=== PATIENT | female | born 1950 | race Caucasian/White ===

== ENCOUNTER → 2018-04-07 | Outpatient (CLI) | payer MEDICARE, OTHER | LOC: MC.RAD 12:47 | DX: Z12.31 Encounter for screening mammogram for malignant neoplasm of breast (principal) ==

== ENCOUNTER 2021-06-23 08:11 | Emergency (ER) | payer MEDICARE, OTHER ==
[~2021-06-23] VITALS: Ht 160 cm; Wt 100.0 kg
[2021-06-23 08:19] VITALS: TEMP 98.1
[2021-06-23 08:50] LABS: BASO % 0.6 % (0.0-2.0); EOS # 0.1 K/mm3 (0.0-0.7); EOS % 1.9 % (0.0-4.0); GRAN # 3.6 K/mm3 (1.4-6.5); GRAN % 66.5 % (42.2-75.2); HEMATOCRIT 47.4 % (37.0-47.0); HEMOGLOBIN 16.1 g/dl (12.5-16.0); LYMPH # 1.2 K/mm3 (1.2-3.4); LYMPH % 21.3 % (20.0-51.0); MEAN CELL VOLUME 88 fl (80.0-100.0); MEAN CORPUSCULAR HEMOGLOBIN 30 pg (27-31); MEAN CORPUSCULAR HGB CONC 34 g/dl (33.0-37.0); MEAN PLATELET VOLUME 8.1 fl (7.4-10.4); MONO # 0.5 K/mm3 (0.1-0.6); MONO % 9.3 % (1.7-9.3); PLATELET COUNT 305 K/mm3 (130-400); REDCELL DISTRIBUTION WIDTH-CV 13.1 % (11.5-14.5)
[2021-06-23 09:03] LABS: ALANINE AMINOTRANSFERASE 29 U/L (0-55); ALBUMIN 4.1 gm/dL (3.4-4.8); ALKALINE PHOSPHATASE 61 U/L (40-150); ANION GAP 13 mmol/L (7-16); AST,SGOT 30 U/L (5-34); BILIRUBIN,TOTAL 0.7 mg/dL (0.2-1.2); BLOOD UREA NITROGEN 10 mg/dL (10-20); CALCIUM 9.1 mg/dL (8.4-10.2); CARBON DIOXIDE 22 mmol/L (23-31); CHLORIDE 103 mmol/L (98-107); CREATININE, serum 0.82 mg/dL (0.57-1.11); GLUCOSE 143 mg/dL (70-99); SODIUM 138 mmol/L (136-145); TOTAL PROTEIN 7.3 gm/dL (6.2-8.1)
[2021-06-23 09:23] LABS: TROPONIN-I < 0.010 ng/mL (0.00-0.033); TSH w REFLEX 1.466 uIU/mL (0.350-4.940)
[2021-06-23 10:45] VITALS: BP 127/79; PULSE 73
== END 2021-06-23 10:45 | disposition home or self-care (01) ==
LOC: COL.ER 08:11
PROVIDERS: Emergency Medicine
DX: R00.2 Palpitations (principal); E66.9 Obesity, unspecified; Z68.39 Body mass index [BMI] 39.0-39.9, adult

== ENCOUNTER 2021-07-22 15:06 | Emergency (ER) | payer MEDICARE, OTHER ==
[~2021-07-22] VITALS: Ht 160 cm; Wt 95.0 kg
[2021-07-22 15:28] VITALS: TEMP 98.1
[2021-07-22 16:33] LABS: BASO % 0.6 % (0.0-2.0); EOS % 0.6 % (0.0-4.0); GRAN # 3.4 K/mm3 (1.4-6.5); GRAN % 72.7 % (42.2-75.2); HEMATOCRIT 46.7 % (37.0-47.0); HEMOGLOBIN 15.7 g/dl (12.5-16.0); LYMPH # 0.8 K/mm3 (1.2-3.4); LYMPH % 16.4 % (20.0-51.0); MEAN CELL VOLUME 89 fl (80.0-100.0); MEAN CORPUSCULAR HEMOGLOBIN 30 pg (27-31); MEAN CORPUSCULAR HGB CONC 34 g/dl (33.0-37.0); MEAN PLATELET VOLUME 8.1 fl (7.4-10.4); MONO # 0.4 K/mm3 (0.1-0.6); MONO % 9.3 % (1.7-9.3); PLATELET COUNT 284 K/mm3 (130-400); RED BLOOD COUNT 5.25 M/mm3 (4.10-5.30); REDCELL DISTRIBUTION WIDTH-CV 13.2 % (11.5-14.5)
[2021-07-22 16:43] LABS: ALBUMIN 3.9 gm/dL (3.4-4.8); BILIRUBIN,TOTAL 0.5 mg/dL (0.2-1.2); CALCIUM 9.2 mg/dL (8.4-10.2); CREATININE, serum 0.84 mg/dL (0.57-1.11); POTASSIUM 4.1 mmol/L (3.5-4.5)
[2021-07-22 16:45] LABS: TROPONIN-I 0.011 ng/mL (0.00-0.033)
[2021-07-22 17:03] VITALS: BP 137/78; PULSE 80
[2021-07-22] MEDS ORDERED: PRINIVIL5 MG PO (17:17)
[2021-07-22] MEDS ORDERED: ZOFRAN ODT4 MG PO (17:17)
[2021-07-22] MEDS ORDERED: ANTIVERT 25MG25 MG PO (17:17)
== END 2021-07-22 17:44 | disposition home or self-care (01) ==
LOC: COL.ER 15:06
PROVIDERS: Emergency Medicine
DX: I10 Essential (primary) hypertension (principal); R42 Dizziness and giddiness

== ENCOUNTER 2021-07-28 19:40 | Emergency (ER) | payer MEDICARE, OTHER ==
[~2021-07-28] VITALS: Ht 160 cm; Wt 94.1 kg
[~2021-07-28 19:40] MED LIST: ANTIVERT 25MG25 MG PO; PRINIVIL5 MG PO; ZOFRAN ODT4 MG PO
[2021-07-28 20:01] VITALS: TEMP 98.6
[2021-07-28 20:57] LABS: BASO % 0.8 % (0.0-2.0); EOS % 0.6 % (0.0-4.0); GRAN # 3.2 K/mm3 (1.4-6.5); HEMATOCRIT 48.9 % (37.0-47.0); HEMOGLOBIN 16.4 g/dl (12.5-16.0); LYMPH # 1.1 K/mm3 (1.2-3.4); LYMPH % 21.9 % (20.0-51.0); MEAN CELL VOLUME 88 fl (80.0-100.0); MEAN CORPUSCULAR HEMOGLOBIN 30 pg (27-31); MEAN CORPUSCULAR HGB CONC 34 g/dl (33.0-37.0); MEAN PLATELET VOLUME 8.3 fl (7.4-10.4); MONO # 0.5 K/mm3 (0.1-0.6); MONO % 10.5 % (1.7-9.3); PLATELET COUNT 320 K/mm3 (130-400); RED BLOOD COUNT 5.54 M/mm3 (4.10-5.30); REDCELL DISTRIBUTION WIDTH-CV 13.3 % (11.5-14.5)
[2021-07-28 21:04] LABS: ALANINE AMINOTRANSFERASE 22 U/L (0-55); ALBUMIN 4.4 gm/dL (3.4-4.8); ALKALINE PHOSPHATASE 68 U/L (40-150); ANION GAP 11 mmol/L (7-16); AST,SGOT 20 U/L (5-34); BILIRUBIN,TOTAL 0.5 mg/dL (0.2-1.2); BLOOD UREA NITROGEN 11 mg/dL (10-20); CALCIUM 9.4 mg/dL (8.4-10.2); CARBON DIOXIDE 23 mmol/L (23-31); CHLORIDE 105 mmol/L (98-107); CREATININE, serum 0.77 mg/dL (0.57-1.11); GLUCOSE 118 mg/dL (70-99); POTASSIUM 3.8 mmol/L (3.5-4.5); SODIUM 139 mmol/L (136-145); TOTAL PROTEIN 7.5 gm/dL (6.2-8.1)
[2021-07-28 21:10] LABS: TROPONIN-I < 0.010 ng/mL (0.00-0.033)
[2021-07-28 21:28] VITALS: BP 133/74; PULSE 72
== END 2021-07-28 21:28 | disposition home or self-care (01) ==
LOC: COL.ER 19:40
PROVIDERS: Emergency Medicine
DX: R42 Dizziness and giddiness (principal); I10 Essential (primary) hypertension; Z79.899 Other long term (current) drug therapy

== ENCOUNTER → 2023-11-25 | Outpatient (CLI) | payer MEDICARE, OTHER | LOC: COL.RAD 15:17 | DX: M19.072 Primary osteoarthritis, left ankle and foot (principal) ==